=== PATIENT | male | born 1995 | race Caucasian/White ===

== ENCOUNTER 2021-08-06 08:31 | Emergency (ER) | payer OTHER ==
[~2021-08-06] VITALS: Ht 170.2 cm; Wt 81.8 kg
[2021-08-06] MEDS ORDERED: NS 1,000 ML IV ONE (08:50)
--- NOTE | 2021-08-06 09:15 | REP ---
INDICATION: left testicular pain COMPARISON: None. TECHNIQUE: Elias scale and color Doppler evaluation using linear and curved array transducer with color Doppler evaluation. FINDINGS: The testicles and epididymi are relatively normal in contour, size, echogenicity, vascularity and overall appearance. There is no evidence for intratesticular mass lesion, infectious/inflammatory process, or torsion. No hydrocele. Early left varicoceles cannot be excluded and should be correlated with physical examination. Right testicle measures 3.9 x 2.1 x 2.5 cm. Left testicle measures 3.9 x 2.2 x 3.0 cm. IMPRESSION: 1. Essentially normal scrotal ultrasound. 2. Cannot exclude very mild early left varicoceles for which correlation and follow-up may be warranted. <Electronically signed by Nestor Qureshi > 08/06/21 [id number]
[2021-08-06 09:30] LABS: BASO # 0.1 10^3/uL (0.0-0.2); BASO % 0.4 % (0.0-1.0); EOS # 0.2 10^3/uL (0.0-0.5); EOS % 1.1 % (0.0-3.0); HEMATOCRIT 47.3 % (42.0-52.0); HEMOGLOBIN 16.5 g/dl (13.5-17.5); LYMPH % 7.4 % (24.0-44.0); MEAN CORPUSCULAR HEMOGLOBIN 30.6 pg (27.0-33.0); MEAN CORPUSCULAR HGB CONC 34.9 g/dl (32.0-36.5); MEAN CORPUSCULAR VOLUME 87.8 fl (80.0-96.0); MONO # 1.1 10^3/uL (0.0-0.8); MONO % 7.9 % (2.0-8.0); NEUTROPHILS # 11.2 10^3/uL (1.5-8.5); NEUTROPHILS % 82.7 % (36.0-66.0); PLATELET COUNT, AUTOMATED 273 10^3/uL (150-450); RED BLOOD COUNT 5.39 10^6/uL (4.30-6.10); WHITE BLOOD COUNT 13.6 10^3/uL (4.0-10.0)
[2021-08-06 09:50] LABS: ALT/SGPT 27 U/L (12-78); BILIRUBIN,DIRECT 0.2 MG/DL (0.0-0.2); BILIRUBIN,TOTAL 0.7 MG/DL (0.2-1.0); BLOOD UREA NITROGEN 13 MG/DL (7-18); CARBON DIOXIDE LEVEL 26 MEQ/L (21-32); CHLORIDE LEVEL 111 MEQ/L (98-107); CREATININE FOR GFR 1.04 MG/DL (0.70-1.30); GLOMERULAR FILTRATION RATE > 60.0 (>60); GLUCOSE, FASTING 95 MG/DL (70-100); LIPASE 90 U/L (73-393); POTASSIUM SERUM 4.1 MEQ/L (3.5-5.1); SODIUM LEVEL 142 MEQ/L (136-145)
[2021-08-06] MEDS ORDERED: ISOVUE-370 76% 100ML VIAL As Ordered ONE (10:05)
[2021-08-06] MEDS ORDERED: MORPHINE 2 MG/ML 1ML VIAL (J2270) IV PRN (10:10)
--- NOTE | 2021-08-06 10:25 | REP ---
INDICATION: left flank/testicle pain. COMPARISON: None TECHNIQUE: Axial contrast-enhanced images from the lung bases to the pubic symphysis using 100 cc Isovue 370 intravenous contrast material. Coronal and sagittal reformations obtained. This CT examination was performed using the following dose reduction techniques: Automated exposure control, adjustment of mA and/or kv according to the patient's size, and the use of iterative reconstruction technique. FINDINGS: Mild left-sided hydroureteronephrosis secondary to a 4 mm obstructing calculus in the distal left ureter (image 119). No further obvious nephroureterolithiasis noted. Liver, spleen, pancreas, bilateral adrenal glands are normal. Prior cholecystectomy. Right kidney includes 2 cm benign upper pole cyst. The enteric system is without obstruction or acute inflammatory process. Pelvis demonstrates normal bladder and age-appropriate prostate/seminal vesicles. No ascites. No free air. No adenopathy. Abdominal aorta without aneurysm or dissection. Musculoskeletal structures without acute osseous abnormality. Lung bases are clear. IMPRESSION: Acute left-sided obstructive uropathy with a 4 mm calculus in the distal left ureter. <Electronically signed by Nestor Qureshi > 08/06/21 1021
[2021-08-06] MEDS ORDERED: TAMSULOSIN 0.4 MG CAP PO ONE (10:55)
[2021-08-06] MEDS ORDERED: HYDROMORPHONE HCL 0.5 MG/ 0.5 ML SYRINGE (J1170 PER 1) IV PRN (10:55)
[2021-08-06] MEDS ORDERED: KETO10TAB PO (12:19)
[2021-08-06] MEDS ORDERED: FLOM0.4C39 PO (12:19)
[2021-08-06] MEDS ORDERED: OXYC1TAB23 PO (12:19)
[2021-08-06 13:02] VITALS: BP 118/73
--- NOTE | 2021-08-06 19:11 | ED PDOC ---
Post-Departure Follow-Up radiology report faxed to [facility] Nazanin Rob MD Aug 06, 2021 19:11
== END 2021-08-06 13:02 | disposition home or self-care (01) ==
LOC: EDBD 08:31 → M ED 08:31
DX: N20.1 Calculus of ureter (principal); F17.290 Nicotine dependence, other tobacco product, uncomplicated
CPT/HCPCS: 74177; 76870; 80048; 80076; 81001; 83690; 85025; 93976; 96374; 99284; J2270; Q9967